=== PATIENT | female | born 1960 ===

== ENCOUNTER 2016-09-21 08:47 | Emergency (ER) | payer MEDICAID ==
[2016-09-21 09:05] VITALS: RESP 18
[2016-09-21] MEDS ORDERED: Sodium Chloride 0.9% 1,000 ML IV STA (09:27)
[2016-09-21] MEDS ORDERED: Iohexol 240 (50 ml) PO STA (09:27)
[2016-09-21] MEDS ORDERED: Iohexol 240 (50 ml) ONE (09:46)
[2016-09-21] MEDS ORDERED: Sodium Chloride 0.9% 1,000 ML ONE (09:47)
[2016-09-21 09:55] LABS: BASO # 0.1 K/uL (0.0-0.2); BASO % 1.1 % (0.0-2.0); EOS # 0.2 K/uL (0.0-0.7); EOS % 3.6 % (0.0-4.0); HEMATOCRIT 41.3 % (34.0-47.0); LYMPH # 2.2 K/uL (1.0-4.3); LYMPH % 45.5 % (20.0-40.0); MEAN CELL VOLUME 82.3 fL (81.0-99.0); MEAN CORPUSCULAR HEMOGLOBIN 26.7 pg (27.0-31.0); MEAN CORPUSCULAR HGB CONC 32.5 g/dL (33.0-37.0); MONO # 0.5 K/uL (0.0-0.8); NRBC % 0.1 % (0.0-2.0); RED CELL DISTRIBUTION WIDTH 14.4 % (11.5-14.5); WHITE BLOOD COUNT 4.9 K/uL (4.8-10.8)
[2016-09-21 10:03] LABS: ALKALINE PHOSPHATASE 85 U/L (38-126); ALT/SGPT 31 U/L (9-52); AST/SGOT 34 U/L (14-36); BILIRUBIN,TOTAL 0.7 mg/dL (0.2-1.3); BLOOD UREA NITROGEN 14 mg/dL (7-17); CALCIUM 8.7 mg/dl (8.6-10.4); CARBON DIOXIDE 25 mmol/L (22-30); CHLORIDE 102 mmol/L (98-107); GFR AFRICAN-AMERICAN > 60; GLUCOSE,RANDOM 117 mg/dL (65-105); SODIUM 142 mmol/L (132-148); TOTAL PROTEIN 7.6 g/dL (6.3-8.3)
--- NOTE | 2016-09-21 10:49 | RAD ---
HISTORY: cough COMPARISON: 05/11/2012 TECHNIQUE: Chest PA and lateral FINDINGS: LUNGS: Diffuse increased interstitial lung markings suggestive for edema and or infiltrate. More patchy increased markings at the left lung base. Scattered nodularity and or nodular densities throughout both lungs. Biapical pleural thickening. PLEURA: No significant pleural effusion identified. No pneumothorax apparent. CARDIOVASCULAR: Tortuous aorta. OSSEOUS STRUCTURES: Degenerative changes in the spine and shoulders. VISUALIZED UPPER ABDOMEN: Normal. OTHER FINDINGS: None. IMPRESSION: Diffuse increased interstitial lung markings suggestive for edema and or infiltrate. More patchy increased markings at the left lung base. Scattered nodularity and or nodular densities throughout both lungs. Biapical pleural thickening.
[2016-09-21] MEDS ORDERED: Iodixanol 320 MG/ML 100 ML BOTTLE IV ONE (11:11)
[2016-09-21 11:23] LABS: RBC URINE < 1 /hpf (0-3); URINE BACTERIA RARE (<OCC); URINE BILIRUBIN NEGATIVE (NEGATIVE); URINE BLOOD NEGATIVE (NEGATIVE); URINE COLOR Straw (YELLOW); URINE GLUCOSE (UA) NORMAL (Normal); URINE KETONE NEGATIVE (NEGATIVE); URINE LEUKOCYTE ESTERASE NEG Leu/uL (Negative); URINE PROTEIN NEGATIVE (NEGATIVE); URINE UROBILINOGEN NORMAL mg/dL (0.2-1.0)
--- NOTE | 2016-09-21 12:12 | CT ---
PROCEDURE: CT Abdomen and Pelvis with oral and IV contrast. HISTORY: right sided abd pain COMPARISON: CT abdomen and pelvis with contrast performed 08/10/14 TECHNIQUE: Contiguous axial images of the abdomen and pelvis. Oral and IV contrast was administered. Coronal and Sagittal reformats generated and reviewed. Contrast dose: 100 mL Visipaque Radiation dose: Total exam DLP = 1127.83 mGy-cm. This CT exam was performed using one or more of the following dose reduction techniques: Automated exposure control, adjustment of the mA and/or kV according to patient size, and/or use of iterative reconstruction technique. FINDINGS: LOWER THORAX: Patchy bilateral lower lobe infiltrates. There is no visible pleural effusion or pneumothorax. LIVER: Hypoattenuation of the liver compatible with hepatic steatosis. GALLBLADDER AND BILE DUCTS: Cholecystectomy. PANCREAS: Unremarkable. SPLEEN: Unremarkable. ADRENALS: Unremarkable. KIDNEYS AND URETERS: The kidneys enhance symmetrically. No hydronephrosis or obstructing renal calculus. BLADDER: The urinary bladder appears unremarkable. REPRODUCTIVE: Uterus is present. Suspect 2.7 cm right ovarian cyst. APPENDIX: The appendix appears within normal limits of caliber. No secondary signs of acute appendicitis. BOWEL: The stomach is nondistended. The bowel loops appear within normal limits of caliber without evidence of intestinal obstruction. PERITONEUM: No significant free fluid. No definite free air. LYMPH NODES: No bulky lymphadenopathy identified. VASCULATURE: No aortic aneurysm. BONES: No acute osseous abnormality is detected. OTHER FINDINGS: None. IMPRESSION: Patchy bilateral lower lobe infiltrates. 2.7 cm probable right ovarian cyst. Recommend pelvic ultrasound for further evaluation. Cholecystectomy. Hepatic steatosis.
[2016-09-21] MEDS ORDERED: Azithromycin 500 MG in Sodium Chloride 0.9% 250 ML IVPB STA (12:19)
[2016-09-21] MEDS ORDERED: cefTRIAXone IV 1 gm in Dextros 50 ML IVPB ONE (12:27)
[2016-09-21] MEDS ORDERED: Azithromycin 500mg/250ML NS 500 MG/250 ML BAG IVPB ONE (12:27)
--- NOTE | 2016-09-21 12:39 | C.PDOC ---
History Of Present Illness <Samara Torres - Last Filed: 09/21/16 16:53> <Traci Bhagat - Last Filed: 09/21/16 18:18> Patient is a 55 year old female presents to the ED for evaluation of right sided abdominal "inflammation" since last night. Patient also complaints of cough for the last few days, and notes that abdominal pain is worse with coughing. Otherwise, denies any fever, chills, shortness of breath, nausea, vomiting, diarrhea, changes in bowel habits, dysuria, hematuria, frequency, flank pain, or vaginal discharge. (Samara Torres) History Per: Patient History/Exam Limitations: no limitations Onset/Duration Of Symptoms: Days (1) Current Symptoms Are (Timing): Still Present Location Of Pain/Discomfort: RUQ, RLQ Radiation Of Pain To:: None Quality Of Discomfort: "Pain" Associated Symptoms: denies: Fever, Chills, Nausea, Vomiting, Diarrhea, Loss Of Appetite, Back Pain, Chest Pain, Constipation, Urinary Symptoms Exacerbating Factors: Cough Alleviating Factors: None Recent travel outside of the [place]: No Additional History Per: Patient Abnormal Vaginal Bleeding: No <Samara Torres - Last Filed: 09/21/16 16:53> <Traci Bhagat - Last Filed: 09/21/16 18:18> Time Seen by Provider: 09/21/16 09:07 Chief Complaint (Nursing): Abdominal Pain Past Medical History Reviewed: Historical Data, Nursing Documentation, Vital Signs - Medical History PMH: Gall Bladder Disease, HTN, Hypercholesterolemia Denies: Chronic Kidney Disease Family History: States: Unknown Family Hx - Social History Hx Tobacco Use: No Hx Alcohol Use: No Hx Substance Use: No - Immunization History Hx Tetanus Toxoid Vaccination: No Hx Influenza Vaccination: No Hx Pneumococcal Vaccination: No <Samara Torres - Last Filed: 09/21/16 16:53> Review Of Systems Except As Marked, All Systems Reviewed And Found Negative. Constitutional: Negative for: Fever, Chills Cardiovascular: Negative for: Chest Pain, Palpitations Respiratory: Positive for: Cough. Negative for: Shortness of Breath, Hemoptysis , Sputum, Wheezing Gastrointestinal: Positive for: Abdominal Pain (right side). Negative for: Nausea, Vomiting, Diarrhea, Constipation Genitourinary: Negative for: Dysuria, Frequency, Incontinence, Hematuria, Vaginal Discharge, Vaginal Bleeding Musculoskeletal: Negative for: Back Pain <BrianSamara - Last Filed: 09/21/16 16:53> Physical Exam - Physical Exam Appears: Non-toxic, No Acute Distress Skin: Normal Color, Warm, Dry Head: Atraumatic, Normacephalic Eye(s): bilateral: Normal Inspection Oral Mucosa: Moist Neck: Supple Cardiovascular: Rhythm Regular, No Murmur Respiratory: Normal Breath Sounds, No Rales, No Rhonchi, No Wheezing Gastrointestinal/Abdominal: Soft, Tenderness (right side of abdomen), No Guarding, No Rebound, Other (obese abdomen) Back: Normal Inspection, No CVA Tenderness Extremity: Bilateral: Atraumatic, Normal ROM Neurological/Psych: Oriented x3, Normal Speech, Normal Cognition <BrianSamara - Last Filed: 09/21/16 16:53> ED Course And Treatment - Laboratory Results Result Diagrams: 09/21/16 09:48 09/21/16 09:48 O2 Sat by Pulse Oximetry: 93 - Other Rad CXR X-Ray: Viewed By Me, Read By Radiologist Interpretation: Accession No. : [id number]. Patient Name / ID : EDIN SALAZAR C / [id number]. Exam Date : 09/21/2016 09:51:25 ( Approved ). Study Comment : Sex / Age : F / 55Y. Creator : Ronal Fernandez MD. Dictator : Ronal Fernandez MD. Storage Management Architect : Plant Production Worker : Ronal Fernandez MD. Approver2 : Report Date : 09/21/2016 10:47:11. My Comment : . HISTORY: cough. COMPARISON: 05/11/2012. TECHNIQUE: Chest PA and lateral. FINDINGS: LUNGS: Diffuse increased interstitial lung markings suggestive for edema and or infiltrate. More patchy increased markings at the left lung base. Scattered nodularity and or nodular densities throughout both lungs. Biapical pleural thickening. PLEURA: No significant pleural effusion identified. No pneumothorax apparent. CARDIOVASCULAR: Tortuous aorta. OSSEOUS STRUCTURES: Degenerative changes in the spine and shoulders. VISUALIZED UPPER ABDOMEN: Normal. OTHER FINDINGS: None. IMPRESSION: Diffuse increased interstitial lung markings suggestive for edema and or infiltrate. More patchy increased markings at the left lung base. Scattered nodularity and or nodular densities throughout both lungs. Biapical pleural thickening. - CT Scan/US Abd & pelvis CT Other Rad Studies (CT/US): Read By Radiologist, Radiology Report Reviewed CT/US Interpretation: FINDINGS: LOWER THORAX: Patchy bilateral lower lobe infiltrates. There is no visible pleural effusion or pneumothorax. LIVER: Hypoattenuation of the liver compatible with hepatic steatosis. GALLBLADDER AND BILE DUCTS: Cholecystectomy. PANCREAS: Unremarkable. SPLEEN: Unremarkable. ADRENALS: Unremarkable. KIDNEYS AND URETERS: The kidneys enhance symmetrically. No hydronephrosis or obstructing renal calculus. BLADDER : The urinary bladder appears unremarkable. REPRODUCTIVE: Uterus is present. Suspect 2.7 cm right ovarian cyst. APPENDIX: The appendix appears within normal limits of caliber. No secondary signs of acute appendicitis. BOWEL: The stomach is nondistended. The bowel loops appear within normal limits of caliber without evidence of intestinal obstruction. PERITONEUM: No significant free fluid. No definite free air. LYMPH NODES: No bulky lymphadenopathy identified. VASCULATURE: No aortic aneurysm. BONES: No acute osseous abnormality is detected. OTHER FINDINGS: None. IMPRESSION: Patchy bilateral lower lobe infiltrates. 2.7 cm probable right ovarian cyst. Recommend pelvic ultrasound for further evaluation. Cholecystectomy. Hepatic steatosis. Pelvis/Transvag US Other Rad Studies (CT/US): Read By Radiologist, Radiology Report Reviewed CT/US Interpretation: FINDINGS: UTERUS: Measures 8.7 x 3.6 x 4.4 cm. Anteverted. ENDOMETRIUM: Measures 4 mm in diameter. CERVIX: No cervical abnormality identified. RIGHT OVARY: Measures 3.6 x 3.1 x 3.1 cm. No solid mass. Normal flow. Blood flow is demonstrated. 2.8 x 2.5 x 2.7 cm anechoic avascular lesion consistent with a cyst. LEFT OVARY: Not well-visualized. FREE FLUID: No significant free fluid noted. OTHER FINDINGS: None. IMPRESSION: 2.8 cm right ovarian cyst. The left ovary is not well visualized. Progress Note: Blood work, urinalysis, CXR, transvag/pelvis ultrasound, abd & pelvis CT scan ordered and reviewed. Patient was treated with Omnipaque, Rocephin, Toradol, Zithromax, and IV fluids. On reassessment, patient is resting comfortably, no acute distress. Abdomen remains soft. Pt reports feeling better, with improvement of pain. <Samara Torres - Last Filed: 09/21/16 16:53> - Laboratory Results Result Diagrams: 09/21/16 09:48 09/21/16 09:48 <Traci Bhagat - Last Filed: 09/21/16 18:18> Medical Decision Making <Samara Torres - Last Filed: 09/21/16 16:53> <Traci Bhagat - Last Filed: 09/21/16 18:18> Medical Decision Making: Patient was given detailed return instructions (Traci Bhagat) Disposition - Disposition Disposition Time: 15:15 <Samara Torres - Last Filed: 09/21/16 16:53> <Traci Bhagat - Last Filed: 09/21/16 18:18> - Disposition Referrals: Gi Hough [Staff Provider] - Disposition: HOME/ ROUTINE Condition: STABLE Additional Instructions: Follow up with your PMD within 1-2 days. Return to ED if feel worse. Prescriptions: Promethazine HCl/Codeine [Prometh-Codein 6.25-10 mg/5 ml] 5 ml PO .Q4-6H #150 ml Benzonatate [Tessalon Perles] 2 tab PO TID #60 sgl Albuterol HFA [Ventolin HFA 90 mcg/actuation (8 g)] 1 puff IH .Q4-6H #1 inhaler Azithromycin [Zithromax] 250 mg PO DAILY #4 tab Instructions: Ovarian Cyst (ED), Community Acquired Pneumonia (ED) Forms: [email or web address] (Portuguese) Print Language: MARSHALLESE - Clinical Impression Clinical Impression: Pneumonia, Ovarian cyst - PA / DATA COLLECTOR / Resident Statement MD/DO has reviewed & agrees with the documentation as recorded. - Scribe Statement The provider has reviewed the documentation as recorded by the Scribe <Rusko,Samara - Last Filed: 09/21/16 16:53> <Traci Bhaagt - Last Filed: 09/21/16 18:18> - Scribe Statement Emmanuel Herndon All medical record entries made by the Scribe were at my direction and personally dictated by me. I have reviewed the chart and agree that the record accurately reflects my personal performance of the history, physical exam, medical decision making, and the department course for this patient. I have also personally directed, reviewed, and agree with the discharge instructions and disposition. (Samara Torres)
--- NOTE | 2016-09-21 14:31 | US ---
HISTORY: right abd pain, ovarian cyst on CT COMPARISON: CT abdomen and pelvis with contrast performed 09/21/16 TECHNIQUE: Real-time transabdominal pelvic ultrasound was performed. In addition a transvaginal pelvic ultrasound was necessary to better depict pelvic anatomy. FINDINGS: UTERUS: Measures 8.7 x 3.6 x 4.4 cm. Anteverted. ENDOMETRIUM: Measures 4 mm in diameter. CERVIX: No cervical abnormality identified. RIGHT OVARY: Measures 3.6 x 3.1 x 3.1 cm. No solid mass. Normal flow. Blood flow is demonstrated. 2.8 x 2.5 x 2.7 cm anechoic avascular lesion consistent with a cyst. LEFT OVARY: Not well-visualized. FREE FLUID: No significant free fluid noted. OTHER FINDINGS: None. IMPRESSION: 2.8 cm right ovarian cyst. The left ovary is not well visualized.
[2016-09-21 16:42] VITALS: BP 150/81; PULSE 85; TEMP 98.3
[2016-09-21 16:54] VITALS: O2SAT 93
== END 2016-09-21 16:50 | disposition home or self-care (01) ==
LOC: C.ER 08:47
DX: N83.209 Unspecified ovarian cyst, unspecified side (principal); J18.9 Pneumonia, unspecified organism
CPT/HCPCS: 71020; 74177; 76830; 76856; 80053; 81001; 83690; 85025; 87040; 96361; 96365; 96367; 96375; 99285; J0456; J0696; J1885; J7040; J7050; Q9966; Q9967